=== PATIENT | male | born 1985 | race Caucasian/White ===

== ENCOUNTER 2024-10-23 07:42 | Emergency (ER) | payer OTHER, SELFPAY ==
[2024-10-23 07:52] VITALS: BP 135/78
[2024-10-23 09:29] LABS: Hematocrit 46.3 % (39.0-52.0); Hemoglobin 16.0 g/dL (13.0-18.0); Mean Corp Hgb Conc. 34.6 g/dL (33.0-37.0); Mean Corpuscular Volume 80.1 fL (80.0-94.0); Nucleated Red Blood Cells % 0 % (-); Platelet Count 437 10^3/uL (130-400); Red Cell Dist. Width 12.7 % (11.5-14.5)
[2024-10-23 09:48] LABS: ALT (SGPT) 20 U/L (0-50); AST (SGOT) 23 U/L (17-59); Albumin 4.8 g/dl (3.5-5.0); Alkaline Phosphatase 74 U/L (38-126); Blood Urea Nitrogen 14 mg/dl (9-20); Calcium 10.0 mg/dl (8.4-10.2); Carbon Dioxide 27 mmol/L (22-30); Chloride 104 mmol/L (98-107); Glucose 108 mg/dl (70-99); Lipase 46 U/L (23-300); Potassium 4.9 mmol/L (3.5-5.1); Sodium 140 mmol/L (135-145); Total Protein 8.1 g/dl (6.3-8.2); eGFR > 60.00
--- NOTE | 2024-10-23 09:48 | ED.GENMED ---
History of Present Illness
General
Chief Complaint: Abdominal Pain
Source: patient
Exam Limitations: none
Time Seen by Provider: 10/23/24 09:38
History of Present Illness
History of Present Illness:
39yoM with no significant past medical history presenting for evaluation of abdominal pain x 3 days. Patient reports pain in his left lower quadrant for the past several days. Pain has been constant and is nonradiating. He had several bowel
movements yesterday did not affect the pain. His bowel movements are described as normal. He took Tylenol last night for his pain. No prior history of similar symptoms. He researched his symptoms online and is worried about diverticulitis. He
is otherwise asymptomatic and denies any fevers, chills, vomiting, hematochezia, testicular pain, urinary symptoms. No previous abdominal surgeries.
Phy Exam
General Physical Exam
General Presentation: well appearing and no apparent distress
General Skin: warm and dry
General Habitus: normal
General Mental: alert
ENT Exam
ENT Exam: normocephalic
Cardiovascular Exam
Cardiovascular Exam: regular rate/rhythm and no murmur
Pulmonary Exam
Pulmonary Exam: lungs clear, no respiratory distress, no rales, no crackles, no rhonchi and no wheezing
Gastrointestinal Exam
Gastrointestinal Exam: soft, non distended, no cva tenderness, tender and other (+Tenderness in the LLQ. Abdomen soft, non-distended. No rebound or guarding.)
Neurological Exam
Neurological Exam: alert
[place] Coma Scale
Eye Opening: Spontaneous
Verbal Response: Oriented
Motor Response: Obeys Commands
GCS Total Score: 15
Skin Exam
Skin Exam: normal color and warm/dry
Psychiatric Exam
Psychiatric Exam: normal mood/affect
Course
Orders/Labs/Results
Orders:
Orders
10/23/24 09:07
CMP [Comprehensive Metabolic Panel] Urgent
Complete Blood Count/With Diff Urgent
Lipase Urgent
10/23/24 09:47
CT Abd/pelvis W Iv Cont Urgent
Comment:
Reason For Exam: LLQ pain
0.9% Sodium Chloride 1000 ml [Nss] 1,000 ml IV BOLUS
10/23/24 10:15
Urinalysis Reflex To Culture Urgent
Date Specimen was Collected: 10/23/24
Time Specimen was Collected: 10:04
Urine Microscopic Reflex Cult Urgent
Abnormal Lab Results
10/23/24 10/23/24
09:07 10:15
WBC 12.6 H 10^3/uL
(4.8-10.8)
Plt Count 437 H 10^3/uL
(130-400)
Absolute Neuts (auto) 9.3 H 10^3/uL
(1.4-6.5)
Absolute Monos (auto) 1.0 H 10^3/uL
(0.1-0.6)
Lymphocytes % 15.6 L %
(20.5-51.1)
Glucose 108 H mg/dl
(70-99)
Ur Occult Blood Reflex 2+ A
(Negative)
Urine RBC 3-6 A /HPF
(0-2)
10/23/24 09:07
10/23/24 09:07
Vital Signs
Initial and Last Documented VS:
Initial Vital Signs
Temp Pulse Resp BP Pulse Ox
98.9 F 97 16 135/78 99
10/23/24 07:52 10/23/24 07:52 10/23/24 07:52 10/23/24 07:52 10/23/24 07:52
Last Documented Vital Signs
Temp Pulse Resp BP Pulse Ox
98.9 F 97 16 135/78 99
10/23/24 07:52 10/23/24 07:52 10/23/24 07:52 10/23/24 07:52 10/23/24 09:48
MDM/Problems Addressed
Differential Diagnosis Includes:
39yoM here with LLQ pain x several days. Otherwise asymptomatic. VSS. He is well appearing in no distress. No signs of peritonitis on abdominal exam. Differential diagnosis includes but is not limited to: Diverticulitis, colitis, constipation,
epiploic appendagitis, less likely kidney stone
Initial ED plan: Labs obtained in triage. White count is 12.6. Remainder of labs unremarkable. CT abdomen with IV contrast ordered. IV fluid bolus.
*Pulse Oximetry
SaO2: 99
Oxygen Mode of Delivery: Room air
Patient hypoxic: no (99%)
*Critical Care Note
Total Time (30-74mins, 75-104mins- exclusive of procedures): Not Applicable
Update Note
Update Note:
Imaging reveals evidence of uncomplicated diverticulitis in the proximal sigmoid colon. Possible asymmetric gynecomastia seen incidentally on the left. Patient does report a history of gynecomastia and had surgery at age 18. He developed scar
tissue in the left breast after the surgery and has had asymmetry since. Copy of radiology report given to patient. He was started on a course of Augmentin. Supportive care discussed including clear liquid diet. Advised follow-up with PCP and ED
return precautions reviewed. Patient discharged in stable condition.
ED Attending Note
-
Portions of this chart may have been created with voice recognition software.� Occasional wrong word or��sound alike� substitutions may have occurred due to the inherent limitations of voice recognition software.
Discharge Plan
Departure
Patient Disposition: Home (Routine Discharge)
Date of Disposition: 10/23/24
Time of Disposition: 12:27
Patient with high blood pressure during this ER visit?: No
Discharge Problem:
Acute diverticulitis
Instructions: Clear Liquid Diet, Diverticulitis - Discharge instructions
Prescriptions:
New
amoxicillin-pot clavulanate 875-125 mg tablet
1 tab PO BID 10 Days Qty: 20 0RF
Referrals:
Eliu Musa MD [Active, Gastroenterology]
Shaye Soto DO [Family Provider, Family Practice]
Activity Restrictions/Additional Instructions:
Take antibiotics as prescribed. Eat a clear liquid diet until pain improves.
Please follow-up with your family doctor and gastroenterology. Return to the ER with any worsening symptoms including severe pain, fevers, or chills.
Interventions
Interventions:
*Risk Screen - Suicide Last Done: 10/23/24 07:52
*General Assessment Last Done: 10/23/24 10:02
*Neglect/Abuse Screening Last Done: 10/23/24 07:52
*ED- Fall Risk Assessment Last Done: 10/23/24 10:02
*ED COVID-19 Vaccine History Last Done: 10/23/24 07:52
DK-Pvxgpb-Ruyftbbulp Assessment Last Done: 10/23/24 10:02
Discharge Date and Time
Print Language: CONGOLESE
[2024-10-23] MEDS: NSS 1000 IV (10:12)
[2024-10-23 10:36] LABS: Urine Character Clear (Clear)
[2024-10-23 11:04] LABS: Urine Squamous Cell 0-2 /LPF (Few); Urine White Cell 0-2 /HPF (0-5)
[2024-10-23 13:15] VITALS: BP 132/73
== END 2024-10-23 13:17 | disposition home or self-care (01) ==
LOC: EMR 07:42
PROVIDERS: Physician Assistant; EMERGENCY PHYSICIAN Emergency Medicine; FAMILY PHYSICIAN Family Medicine
DX: K57.32 Diverticulitis of large intestine without perforation or abscess without bleeding (principal)
CPT/HCPCS: 99284; 96360; 74177; 80053; 81003; 81015; 83690; 85025; Q9967